=== PATIENT | male | born 1975 | race African-American/Black ===

== ENCOUNTER 2018-02-25 13:46 | Emergency (ER) | payer SELFPAY ==
[~2018-02-25] VITALS: Ht 175.3 cm; Wt 102.5 kg
[~2018-02-25 13:46] MED LIST: CLIN150 PO; IBUP800 PO; LISI-360 PO; ULTR50TA PO
[2018-02-25 13:54] VITALS: BP 179/98; PULSE 83; RESP 16; TEMP 98.6; O2SAT 99
[2018-02-25] MEDS ORDERED: PRIL20TA2 PO (14:01)
[2018-02-25] MEDS ORDERED: LISI10TA3 PO (14:01)
[2018-02-25] MEDS ORDERED: IBUP1TAB5 PO (14:01)
--- NOTE | 2018-02-25 14:31 | PD ---
HPI Chief Complaint: Musculoskeletal Complaint Time Seen by Provider: 14:02 Travel History International Travel<30 days: No Contact w/Intl Traveler<30days: No Traveled to known affect area: No History of Present Illness HPI 42-year-old potential presents to the emergency room for evaluation of right knee pain and intermittent swelling for the past 2 years. He denies any known trauma or injury. Works in construction and plays basketball a lot. States over the past 5 months symptoms have been persistent. Moderate in severity. Swelling is intermittent and usually improves if he applies ice and elevate his knee. Pain is localized to the posterior aspect of the knee. It is relieved with range of motion and worsened with rest. There is no radiation. He takes [id number] anti-inflammatories with moderate relief in symptoms. Denies any paresthesias. History Past Medical Histgory Hx Cancer: No Past Surgical History Surgical History: No Previous Surgery Social History Alcohol Use: No Tobacco Use: No Allergies-Medications (Allergen,Severity, Reaction): Coded Allergies: No Known Allergies (Unverified Adverse Reaction, Unknown, 02/25/18) Reported Meds & Prescriptions Reported Meds & Active Scripts Active Reported Ibuprofen 400 Mg Tab 400 Mg PO Q4H PRN Prilosec (Omeprazole Magnesium) 20 Mg Tab 1 Tab PO DAILY Lisinopril 10 Mg Tab 10 Mg PO DAILY Review of Systems Except as stated in HPI: all other systems reviewed are Neg Physical Exam Narrative GENERAL: Well-nourished, well-developed male in no acute distress. Afebrile. Ambulatory. SKIN: Focused skin assessment warm/dry. No erythema or ecchymosis. No increased warmth. HEAD: Normocephalic. EYES: No scleral icterus. No injection or drainage. NECK: Supple, trachea midline. No JVD or lymphadenopathy. CARDIOVASCULAR: Regular rate and rhythm without murmurs, gallops, or rubs. RESPIRATORY: Breath sounds equal bilaterally. No accessory muscle use. MUSCULOSKELETAL: No cyanosis. Moderate effusion to the right knee. No obvious soft tissue edema. Full range of motion of bilateral lower extremities. 2+ dorsalis pedis pulse in the right. Mild tenderness to palpation of the posterior aspect. No bony tenderness to palpation. Data Data Last Documented VS Vital Signs Date Time Temp Pulse Resp B/P (MAP) Pulse Ox O2 Delivery O2 Flow Rate FiO2 02/25/18 13:54 98.6 83 16 179/98 (200) 99 MDM Medical Screen Exam Complete: Yes Emergency Medical Condition: No Differential Diagnosis Inflammatory arthritis Narrative Course 42-year-old male presents to the emergency room for evaluation of chronic right knee pain. Denies any trauma or injury. When asked what brought him in today, he states he would just like to know what is wrong with his knee and why symptoms are persistent. Physical exam reveals obvious, moderate effusion to the right knee. Right lower extremity is neurovascularly intact with 2+ dorsalis pedis pulse. Patient has full range of motion and is ambulatory. I do not suspect any acute bony injury. Patient was informed that there are no indications for emergency x-ray at this time and imaging would not change the treatment. He was informed that he will need to an arthrocentesis and MRI to fully evaluate the cause of his chronic condition which we do not perform in the emergency room. He was given multiple outpatient resources with which to follow-up. He was also told to continue elevating, compression, and taking NSAIDs for pain. A medical screening exam was performed: At the time of evaluation the presenting medical condition was determined not to be of an emergent nature. The patient was given the option of receiving additional care, but declined. Patient was given options for additional community resources from which to obtain care. The Patient Has Been advised to seek medical attention for their presenting complaint. The patient has been advised to return to the ER at any time if an emergent condition develops. Primary Impression: Encounter for medical screening examination Disposition: 01 DISCHARGE HOME Condition: Stable Trish Padilla Feb 25, 2018 14:31
== END 2018-02-25 14:15 | disposition left against medical advice (07) ==
LOC: PHEFT 13:46
DX: M25.561 Pain in right knee (principal); M25.461 Effusion, right knee
CPT/HCPCS: 99281